=== PATIENT | female | born 1950 | race African-American/Black ===

== ENCOUNTER 2017-07-09 18:23 | Emergency (ER) | payer OTHER, MEDICARE ==
[2017-07-09] MEDS: predniSONE 10 MG TABLET PO ×2 (19:40)
== END 2017-07-09 20:08 | disposition home or self-care (01) ==
LOC: ER 18:23
DX: M25.512 Pain in left shoulder (principal); R20.0 Anesthesia of skin; J44.9 Chronic obstructive pulmonary disease, unspecified; I10 Essential (primary) hypertension; Z88.1 Allergy status to other antibiotic agents
CPT/HCPCS: 99283; J7512